=== PATIENT | female | born 1960 | race Caucasian/White ===

== ENCOUNTER 2021-03-03 04:54 | Emergency (ER) | payer OTHER, SELFPAY ==
[2021-03-03 04:57] VITALS: BP 117/86; PULSE 83; RESP 18; TEMP 36.4; O2SAT 98
[2021-03-03 05:06] VITALS: RESP 18
[2021-03-03 05:12] LABS: Bilirubin Negative (Negative); Blood Negative (Negative); Clarity Sl Cloudy (Clear); Glucose 500 mg/dL (Negative); Ketones Negative (Negative); Leukocyte Esterase Negative (Negative); Nitrite Negative (Negative); Specific Gravity >= 1.030 (1.005-1.025); Urobilinogen 0.2 EU/dL (Up TO 0.2); pH 5.5 (5-8)
--- NOTE | 2021-03-03 05:15 | RT.EKG_ITS ---
APPROVED REPORT Exam: Resting ECG Patient Location: E HR:81 bpm ECG Measurements Heart Rate 81 AXIS MA 180 P 35 QRSd 89 QRS 38 QT 407 T 11 QTc 472 Conclusion Sinus rhythm...normal P axis, V-rate 60- 99 Probable left atrial enlargement...P >50mS, <-0.10mV V1 Low voltage, precordial leads...precordial leads <1.0mV Physician: Rate 81, intervals unremarkable. Sinus rhythm. No significant ST elevation or depression . No STEMI. Q-wave in lead III. No other abnormalities.
--- NOTE | 2021-03-03 05:15 | DI.CT_ITS ---
EXAM: CT ABDOMEN PELVIS W INDICATION: ruq pain. COMPARISON: No exams were available for comparison TECHNIQUE: FINDINGS: CT examination of the abdomen and pelvis was performed with a bolus infusion of 100 cc of Omnipaque 3 50. Images obtained through the lung bases are unremarkable. There is small fluid collection adjacent to the duodenal C loop which appears well-circumscribed in w hich is likely to represent a duodenal diverticulum. This also contains small quantity of gas. I garcia ppose a possibility of contained ulceration could not be excluded, if clinically indicated additional evaluation with endoscopy of the stomach and duodenum could be considered. The liver is unremarkable in appearance except for question slight decreased attenuation which could represent hepatic steatosis.. Gallbladder and bile ducts are CT normal. Pancreas appears normal. Spleen is unremarkable in appearance. Adrenals appear normal. The kidneys are unremarkable with no evidence of hydronephrosis, nephrolithiasis, or renal mass.. Ur inary bladder unremarkable. Abdominal aorta is of normal diameter and no major vascular abnormality is seen. No abdominal wall hernia. No abdominal or pelvic adenopathy. Uterus atrophic or absent. Appendix is normal. No evidence of diverticulitis or bowel obstruction. IMPRESSION: Probable duodenal diverticulum. If there is a high clinical suspicion of duodenitis or duodenal ulce ration additional evaluation with endoscopy could be considered. RADIATION DOSE DELIVERED: 1,168.28mGy.cm Total DLP 1,168.28mGy.cm Total DLP RADIATION OPTIMIZATION: All CT scans at this facility use at least one of these dose optimization te chniques: automated exposure control; mA and/or kV adjustment per patient size (includes targeted exa ms where dose is matched to clinical indication); or iterative reconstruction.
--- NOTE | 2021-03-03 05:16 | ED.GENADUL_ITS ---
Discharge Plan Disposition Patient Disposition: HOME Condition: Good Discharge Details Clinical Impression: Abdominal bloating, Incidental pulmonary nodule, Diverticulum of duodenum Primary Care Provider: Sneha Bonilla ED Provider: Keith Noble Home Meds and New Rx's Prescriptions: New omeprazole 40 mg capsule,delayed release(DR/EC) 40 mg PO DAILY Qty: 30 RF: 0 Continued cholecalciferol (vitamin D3) [Vitamin D3] 125 mcg (5,000 unit) Tablet 5,000 unit PO DAILY RF: 0 Discharge Instructions Instructions: Abdominal Pain (ED) Additional Instructions: At this time there is evidence of a small outpouching in your small intestines. While this is not life-threatening it does need to be evaluated further. Promptly. Please follow-up closely at your appointment with Dr. Frank surgeon for further assessment. Please take the new medication omeprazole as directed and do not eat anything spicy, tomato-based, citrus-based, as this may worsen your symptoms. Please stick with a bland diet for the next few weeks. [facility] Additionally there was an incidental small pulmonary nodule noted on your CAT scan. Please follow-up with your family doctor for repeat imaging in the next few months for reassessment. If you notice any worsening of your symptoms, or any new symptoms such as vomiting, diarrhea, fever, chills, shortness of breath, chest pain, numbness, weakness, or fainting , please return immediately to the emergency department for reevaluation. Please follow up with your primary care provider as soon as possible for reassessment and reevaluation. As always, it was a pleasure participating in your medical care today. Your appointment is on Saturday at 11:30 AM. Please do not miss this appointment. Referrals: Lucia Frank MD [ [facility] STAFF PHYSICIAN] - Sneha Bonilla [Primary Care Provider] - Medical Decision Making <José Miguel Noble DO - Last Filed: 03/03/21 07:51> 60-year-old female with past medical history of hysterectomy, d iabetes, previous ovarian cyst, presents today for complaint of abdominal pain nausea. Patient recently moved back here a few months ago from [place]. [facility] Patient states last 24 hours she has had bloating, nausea with no vomiting. She has had no diarrhea. Later this evening she had an increase in epigastric and right upper quadrant pain. Seemingly unrelated she has noticed a small amount of tingling in her right lateral thigh, as well as slight increase in her chronic left calf rash. In regards to the tingling she denies any trauma or back pain. She denies any weakness in the leg. Regards to the rash she denies any new medications or changes. She states that she has had type of rash for quite some time. No other complaints at this time. No other modifying factors. Exam demonstrates mild right upper quadrant tenderness. No signs of an acute surgical abdomen currently though. Mild bloating of the abdomen. No saddle anesthesia or signs of neurovascular compromise. Sensation is notably intact on the right thigh and right lower extremity. Rash on the left calf appears chronic. No evidence of Henoch-Amy?nlein purpura. Patient states that the nature of the rash appears consistent with prior rash that area just slightly increased in size. No evidence of infection or cellulitis. At this time symptoms are concerning for acute gallbladder pathology, pancreatitis. I do not feel that the other etiologies are related at this time and currently there is no clinical evidence of life-threatening rash, cauda equina syndrome or or severe neurovascular compromise. We will get a CT scan of the abdomen to evaluate the gallbladder, gently rehydrate, give Toradol for pain, monitor closely and reassess. Screening EKG is unremarkable. 7:19 AM Laboratory work-up unremarkable. Patient resting comfortably. Repeat abdominal exam demonstrates notable improvement of pain. Pending CT scan results. Patient will be signed out to my colleague Dr. Noble for reassessment final disposition after CT scan results. 7:[address] scan results have returned, there is evidence of a 1.3 cm focal outpouching of fluid and gas along the descending duodenum. Patient has no white count, bandemia or left shift, no fever or tachycardia. No clinical evidence of infection otherwise. Dr. Frank has reviewed the CAT scan itself, and feels upon her review that this is more likely to be secondary to a diverticulum. She does recommend in the setting of a benign abdomen that she be discharged with omeprazole and close follow-up outpatient for EGD. This was discussed with the patient. Patient will be given a specific time for the appointment, after which point the patient will be formally otherwise discharge by Dr. Noble. I have extensively reviewed the treatment plan and discharge instructions with the patient. I have addressed all patient concerns at this time. The patient was made aware of what symptoms to monitor for that would warrant a return to the emergency department. Discussed the plan with the patient, they demonstrate verbal understanding and agreement with our assessment and plan at this time. The documentation in this chart was dictated using [employer] dictation software. Please excuse any dictation errors. EKG 5: 23 Rate 81, intervals unremarkable. Sinus rhythm. No significant ST elevation or depression. No STEMI. Q-wave in lead III. No other abnormalities. FINDINGS: Lungs: The visualized lung bases demonstrate minor dependent atelectasis. A few tiny basilar lung nodules measure up to 3 mm. Liver: The liver is mildly fatty in density. It appears otherwise unremarkable. Gallbladder and bile ducts: No gallstones are evident, but ultrasound would be more sensitive. No gross biliary ductal dilatation. Pancreas: Normal. No ductal dilation. Spleen: Normal. No splenomegaly. Adrenal glands: Normal. No mass. Kidneys and ureters: Normal. No hydronephrosis. Stomach and bowel: There is a 1.3 x 1.2 x 1.3 cm focal outpouching of fluid and gas along the descending duodenum which could represent diverticulum or contained ulceration. No significant surrounding fatty inflammatory change is evident, but the duodenal wall may be mildly thickened here. The unopacified small bowel is not significantly distended to suggest obstruction. There is minor sigmoid colonic diverticulosis without evidence for diverticulitis. The large bowel is otherwise grossly unremarkable in appearance. Appendix: The appendix appears normal. Intraperitoneal space: No free air or significant free fluid. Vasculature: The abdominal aorta is nonaneurysmal. Atherosclerotic vascular calcifications are noted. Lymph nodes: There are mildly prominent al hepatis lymph nodes measuring up to 1.3 cm short axis. Urinary bladder: Unremarkable. Reproductive: Unremarkable as visualized. Bones/joints: Degenerative changes involve the spine and hips. Soft tissues: Unremarkable. IMPRESSION: 1. 1.3 cm focal outpouching of fluid and gas along the descending duodenum, could represent diverticulum or contained ulceration. No significant surrounding fatty inflammatory change evident, but potential mild wall thickening of the duodenum here. Consider dedicated evaluation. 2. Mild al hepatis lymphadenopathy measuring up to 1.3 cm short axis, nonspecific. 3. Minor sigmoid colonic diverticulosis without evidence for diverticulitis. 4. Mildly fatty liver. 5. Few basilar lung nodules measuring up to 3 mm, further evaluation and/or followup to be determined at time of final read depending on availability of prior imaging and as per institutional protocol. Thank you for allowing us to participate in the care of your patient. Dictated and Authenticated by: Stone Posada MD 03/03/2021 7:36 AM Eastern Time ([place] & [place]) <Keith Noble MD - Last Filed: 03/03/21 08:10> Dr. Noble and I had discussed the patient's case. She was dispositioned without my involvement, as per Dr. Noble's notes. HPI <José Miguel Noble DO - Last Filed: 03/03/21 07:51> General Date/Time Provider Initiated Documentation: 03/03/21 05:04 . HPI Narrative: 60-year-old female with past medical history of hysterectomy, diabetes, previous ovarian cyst, presents today for complaint of abdominal pain nausea. Patient recently moved back here a few months ago from [place]. [facility] Patient states last 24 hours she has had bloating, nausea with no vomiting. She has had no diarrhea. Later this evening she had an increase in epigastric and right upper quadrant pain. Seemingly unrelated she has noticed a small amount of tingling in her right lateral thigh, as well as slight increase in her chronic left calf rash. In regards to the tingling she denies any trauma or back pain. She denies any weakness in the leg. Regards to the rash she denies any new medications or changes. She states that she has had type of rash for quite some time. No other complaints at this time. No other modifying factors. Related Data Home Medications Medication Instructions Recorded Confirmed cholecalciferol (vitamin D3) 5,000 unit PO DAILY 03/03/21 03/03/21 [Vitamin D3] omeprazole 40 mg PO DAILY #30 cap 03/03/21 Previous Rx's Medication Instructions Recorded omeprazole 40 mg PO DAILY #30 cap 03/03/21 Allergies Allergy/AdvReac Type Severity Reaction Status Date / Time codeine Allergy Unverified 03/03/21 06:21 lorazepam Allergy Unverified 03/03/21 06:21 General Stated Complaint: GenMedical ALEXANDRE: 4 Review of Systems <José Miguel Noble DO - Last Filed: 03/03/21 07:51> All systems reviewed & are unremarkable except as noted in HPI and below PFSH <José Miguel Noble DO - Last Filed: 03/03/21 07:51> Medical History (Updated 03/03/21 @ 07:47 by José Miguel Noble DO) Diabetes Lymph cyst Right wrist injury Surgical History (Updated 03/03/21 @ 07:45 by Bri Waite) History of hysterectomy Social History Smoking/Tobacco Use Status: Never Smoking risk assessment performed?: Yes Alcohol Intake: never Drug use: Never Substance use type: does not use Do you feel safe at home: Yes Do you feel safe in your relationship?: Yes Exam <José Miguel Noble DO - Last Filed: 03/03/21 07:51> Narrative Exam Narrative: 1.Const: Well-nourished, Well-developed, appearing stated age 2.Eyes: PERRL, no conjunctival injection, and symmetrical lids. 3.ENT: Atraumatic external nose and ears. Moist MM. Neck: Symmetric, trachea midline, No thyromegaly. 4.CVS: +S1/S2, No murmurs or gallops. Peripheral pulses 2+ and equal in all extremities. Brisk capillary refill in all extremities. 5.RESP: Unlabored respiratory effort. Clear to auscultation bilaterally. No wheezes rales or rhonchi 6.GI: Soft, nondistended, mild tenderness in the right upper quadrant and epigastric region, more so on the right upper quadrant itself. No pain at McBurney's point. Negative Bob sign. No pelvic tenderness. 7.MSK: Normocephalic/Atraumatic, Extremities w/o deformity or ttp No cyanosis or clubbing, Normal movement of all extremities. No midline tenderness to palpation over the CTLS spine. Normal ROM in flexion, extension, side bend, and rotation. Patient has +5 out of 5 strength in the lower extremities in dorsiflexion and plantarflexion, knee flexion and extension, hip flexion and extension. Normal strength for dorsiflexion and plantar flexion of the great toe bilaterally. There is +2 over 2 dorsalis pedis pulses bilaterally. There is normal sensation to the skin with light touch at the foot, knee, and hip. She does have a slight decrease in soft touch sensation in the right lateral thigh, however pinprick and firm touch are still notably intact and equal. Normal saddle sensation. Good sensation over the deep sural nerve area bilaterally. Rectal exam deferred. Reflexes are +2 over 4 in the patellar reflex bilaterally. +5 out of 5 strength in the medial, ulnar, radial nerve distribution bilaterally in the hands as well as intact light touch sensation to these dermatomes on the hands 8.Skin: Warm, Dry. The patient's left calf demonstrates a chronic appearing nonblanching spotted and slightly raised and bumpy rash localized just to her left lateral calf. Skin appears notably dry, flaky, with no edema, warmth, swelling, calf tenderness, or evidence of vascular compromise. Symptoms do not appear consistent with Henoch-Amy?nlein purpura. Negative Nikolsky sign. No large vesicles or bulla. No palpable purpura. No oral lesions. No mucosal lesions. No evidence of severe cellulitis. No evidence of vaccine preventable rash. 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 Sensation grossly intact, no focal neurologic deficits. 10.Psych: (AAO) x3. Appropriate mood and affect Course <José Miguel Noble DO - Last Filed: 03/03/21 07:51> Vital Signs Vital signs: Vital Signs Temperature 36.4 C L 03/03/21 04:57 Pulse 83 03/03/21 04:57 Respiratory Rate 18 03/03/21 04:57 Blood Pressure 117/86 03/03/21 04:57 Pulse Oximetry 98 03/03/21 04:57 Temperature 36.4 C L 03/03/21 04:57 Pulse 83 03/03/21 04:57 Respiratory Rate 18 03/03/21 05:06 Respiratory Effort Non-Labored 03/03/21 05:06 Respiratory Depth Normal 03/03/21 05:06 Respiratory Pattern Normal 03/03/21 05:06 Blood Pressure 117/86 03/03/21 04:57 Pulse Oximetry 98 03/03/21 04:57 Oxygen Delivery Method Room Air 03/03/21 04:57 Oxygen Flow Rate 0 03/03/21 04:57 Pain Level 8 03/03/21 04:57 Lab/Test Results Lab/Test Results: Laboratory Tests Range/Units 03/03/21 05:05 Urine Color (Yellow) Yellow Urine Clarity (Clear) Sl cloudy Urine pH (5-8) 5.5 Ur Specific Sabine (1.005-1.025) >= 1.030 H Urine Protein (Negative) mg/dL Negative Urine Ketones (Negative) mg/dL Negative Urine Blood (Negative) Negative Urine Nitrite (Negative) Negative Urine Bilirubin (Negative) Negative Urine Urobilinogen (Up TO 0.2) EU/dL 0.2 Ur Leukocyte Esterase (Negative) Negative Urine Glucose (Negative) mg/dL 500 H Sign Out <José Miguel Noble DO - Last Filed: 03/03/21 07:51> Sign Out Data: Sign Out Comment: Epigastric pain and bloating for the last 24 hours. Labs reassuring. Nonsurgical abdomen on exam. Reassess after CT scan results. Last updated by José Miguel Noble DO at 03/03/21 07:21
[2021-03-03] MEDS: Normal Saline 1,000 ML 1000 ML IV (05:24)
[2021-03-03] MEDS: Ondansetron 4 MG/2 ML VIAL IVP (05:25)
[2021-03-03] MEDS: Ketorolac 30 MG/ML VIAL IVP (05:26)
[2021-03-03 05:27] LABS: Abs Immature Grans 0.02 10^3/uL (0.0-0.06); Absolute Basophil Count 0.06 10^3/uL (0.0-0.2); Absolute Eosinophil Count 0.22 10^3/uL (0.0-0.7); Absolute Lymphocyte Count 2.74 10^3/uL (1.2-3.4); Absolute Monocyte Count 0.66 10^3/uL (0.1-0.8); Absolute Neutrophil Count 5.15 10^3/uL (1.2-6.7); Basophils % 0.7; Eosinophils % 2.5; HCT 42.1 % (36.0-46.0); HGB 13.8 g/dL (11.2-15.7); Immature Grans % 0.2; MCHC 32.8 % (32.0-36.0); MCV 85.4 fL (80-95); MPV 8.5 fL (8.0-11.0); Monocytes % 7.5; Neutrophils % 58.1; Nucleated RBC 0 %; Platelet Count 251 10^3/uL (130-400); RBC 4.93 10^6/uL (3.93-5.22); RDW 12.6 % (11.7-14.6); WBC 8.85 10^3/uL (4.4-10.8)
[2021-03-03 05:45] LABS: ALT 39 U/L (14-59); AST 11 U/L (15-37); Albumin 3.7 g/dL (3.4-5.0); Alkaline Phosphatase 129 U/L (46-116); Anion Gap 7.9 mmol/L (3-11); BUN 20 mg/dL (7-18); Bilirubin, Total 0.5 mg/dL (0.2-1.0); CO2 29.1 mmol/L (21.0-32.0); CREATININE 0.8 mg/dL (0.55-1.02); Calcium 8.8 mg/dL (8.5-10.1); Chloride 101 mmol/L (98-107); Glucose 295 mg/dL (74-106); Lipase 125 U/L (73-393); Potassium 3.9 mmol/L (3.5-5.1); Sodium 138 mmol/L (136-145)
[2021-03-03 05:47] LABS: Prothrombin Time 10.4 sec (9.3-11.0); Troponin I < 0.05 ng/mL (<0.06)
--- NOTE | 2021-03-03 07:37 | DI.VRAD_ITS ---
PROCEDURE INFORMATION: Exam: CT Abdomen And Pelvis With Contrast Exam date and time: 03/03/2021 5:16 AM Age: 60 years old Clinical indication: Other: Ruq pain; Prior surgery; Surgery date: 6+ months; Surgery type: S/P hysterectomy TECHNIQUE: Imaging protocol: Computed tomography of the abdomen and pelvis with contrast. Radiation optimization: All CT scans at this facility use at least one of these dose optimization techniques: automated exposure control; mA and/or kV adjustment per patient size (includes targeted exams where dose is matched to clinical indication); or iterative reconstruction. Contrast material: OMNIPAQUE 350; Contrast volume: 100 ml; Contrast route: INTRAVENOUS (IV); COMPARISON: No relevant prior studies available. FINDINGS: Lungs: The visualized lung bases demonstrate minor dependent atelectasis. A few tiny basilar lung nodules measure up to 3 mm. Liver: The liver is mildly fatty in density. It appears otherwise unremarkable. Gallbladder and bile ducts: No gallstones are evident, but ultrasound would be more sensitive. No gross biliary ductal dilatation. Pancreas: Normal. No ductal dilation. Spleen: Normal. No splenomegaly. Adrenal glands: Normal. No mass. Kidneys and ureters: Normal. No hydronephrosis. Stomach and bowel: There is a 1.3 x 1.2 x 1.3 cm focal outpouching of fluid and gas along the descending duodenum which could represent diverticulum or contained ulceration. No significant surrounding fatty inflammatory change is evident, but the duodenal wall may be mildly thickened here. The unopacified small bowel is not significantly distended to suggest obstruction. There is minor sigmoid colonic diverticulosis without evidence for diverticulitis. The large bowel is otherwise grossly unremarkable in appearance. Appendix: The appendix appears normal. Intraperitoneal space: No free air or significant free fluid. Vasculature: The abdominal aorta is nonaneurysmal. Atherosclerotic vascular calcifications are noted. Lymph nodes: There are mildly prominent al hepatis lymph nodes measuring up to 1.3 cm short axis. Urinary bladder: Unremarkable. Reproductive: Unremarkable as visualized. Bones/joints: Degenerative changes involve the spine and hips. Soft tissues: Unremarkable. IMPRESSION: 1. 1.3 cm focal outpouching of fluid and gas along the descending duodenum, could represent diverticulum or contained ulceration. No significant surrounding fatty inflammatory change evident, but potential mild wall thickening of the duodenum here. Consider dedicated evaluation. 2. Mild al hepatis lymphadenopathy measuring up to 1.3 cm short axis, nonspecific. 3. Minor sigmoid colonic diverticulosis without evidence for diverticulitis. 4. Mildly fatty liver. 5. Few basilar lung nodules measuring up to 3 mm, further evaluation and/or followup to be determined at time of final read depending on availability of prior imaging and as per institutional protocol. Dictated and Authenticated by: Stone Posada MD. Ordering:ANA Valdez MD
== END 2021-03-03 08:14 | disposition home or self-care (01) ==
PROVIDERS: Student in an Organized Health Care Education/Training Program; Emergency Provider Emergency Medicine; PCP Nurse Practitioner Family
DX: R14.0 Abdominal distension (gaseous) (principal); R10.11 Right upper quadrant pain; K57.10 Diverticulosis of small intestine without perforation or abscess without bleeding; R91.1 Solitary pulmonary nodule; R21 Rash and other nonspecific skin eruption
CPT/HCPCS: 36415; 80053; 83690; 93005; 96361; 96374; 96375; 99285; 74177; 81003; 84484; 85025; 85610; 85730; 93010; 99284; J1885; J2405

== ENCOUNTER 2021-03-06 01:17 | Emergency (ER) | payer OTHER, MEDICARE, SELFPAY ==
[2021-03-06 01:30] VITALS: BP 135/80; PULSE 82; RESP 18; TEMP 36.4; O2SAT 97
--- NOTE | 2021-03-06 01:42 | W.ED.GENAD ---
Discharge Plan Disposition Patient Disposition: HOME Condition: Stable Discharge Details Clinical Impression: Throat burning Primary Care Provider: Sneha Bonilla ED Provider: Stone Mac Home Meds and New Rx's Prescriptions: Continued omeprazole 40 mg capsule,delayed release(DR/EC) 40 mg PO DAILY Qty: 30 RF: 0 insulin glargine 100 unit/mL Solution 15 unit SUBCUT DAILY RF: 0 ammonium lactate 12 % Lotion 1 applic TOPICAL BID RF: 0 hydroxyzine HCl 50 mg Tablet 50 mg PO HS PRNRF: 0 triamcinolone acetonide 0.1 % Cream 1 applic TOPICAL BID PRNRF: 0 ergocalciferol (vitamin D2) 50,000 unit Tablet 50,000 unit PO QWEEK RF: 0 carboxymethylcellulose sodium 0.5 % Drops 1 drp ophthalmic (eye) QID RF: 0 nystatin 100,000 unit/gram Cream 1 applic TOPICAL TID PRNRF: 0 mupirocin 2 % Ointment 1 applic TOPICAL BID PRNRF: 0 ketoconazole 2 % Cream 1 applic TOPICAL BID PRNRF: 0 duloxetine 30 mg Capsule,Delayed Release(Dr/Ec) 60 mg PO DAILY RF: 0 cholecalciferol (vitamin D3) 50 mcg (2,000 unit) Tablet 50 mcg PO DAILY RF: 0 Discharge Instructions Additional Instructions: You had normal vital signs and a normal throat exam, there doesn't appear to be an emergent process at this time follow up with your primary care provider within 1 week if you have difficulty breathing, persistent vomit or feel more ill return to the emergency department for evaluation Medical Decision Making 60 yo female with hx of dm, fibromyalgia, who comes in with complaints of one year of burning sensation in throat and throughout her body. No changes tonight in symptoms is just concerned she may have an std despite having no vaginal discharge or abdominal pain. She states she is convinced she has an std from her exhusband but denies ever testing positive for an std and is not sure if he has tested positive. She has no fevers, no chest pain, no dyspnea and is speaking in full sentences on exam. She has a normal oropharynx with midline uvula, no pain over the hyoid, no restricted neck movements and normal swallowing. She has no particular area of her body that has more of burning sensation than another and can't think of anything that makes it better or worse. I suspect the whole body burning is part of her fibromyalgia and given her chronicity of her symptoms as well as reassuring exam with normal pulses, range of motion, normal neuro exam do not feel labs or imaging indicated. HAs no findings on exam to suggest retropharyngeal abscess, epiglotitis, or peritonsilar abscess and no findings to even suggest pharyngitis. She is requesting a throat culture which I feel is reasonable. She declined std testing here and is going to follow up with her primary care provider, return precautions given. Differential Diagnosis Differential Diagnosis: gerd, pharyngitis HPI General Mode of arrival: ambulatory. Date/Time Provider Initiated Documentation: 03/06/21 01:20. Limitations to Documentation: no limitations. Information obtained by: patient. Related Data Home Medications Medication Instructions Recorded Confirmed ammonium lactate 1 applic TOPICAL BID 03/03/21 03/03/21 carboxymethylcellulose sodium 1 drp OPHTHALMIC (EYE) QID 03/03/21 03/03/21 cholecalciferol (vitamin D3) 50 mcg PO DAILY 03/03/21 03/03/21 duloxetine 60 mg PO DAILY 03/03/21 03/03/21 ergocalciferol (vitamin D2) 50,000 unit PO QWEEK 03/03/21 03/03/21 hydroxyzine HCl 50 mg PO HS PRN 03/03/21 03/03/21 insulin glargine 15 unit SUBCUT DAILY 03/03/21 03/03/21 ketoconazole 1 applic TOPICAL BID PRN 03/03/21 03/03/21 mupirocin 1 applic TOPICAL BID PRN 03/03/21 03/03/21 nystatin 1 applic TOPICAL TID PRN 03/03/21 03/03/21 omeprazole 40 mg PO DAILY #30 cap 03/03/21 triamcinolone acetonide 1 applic TOPICAL BID PRN 03/03/21 03/03/21 Previous Rx's Medication Instructions Recorded omeprazole 40 mg PO DAILY #30 cap 03/03/21 Allergies Allergy/AdvReac Type Severity Reaction Status Date / Time aspirin Allergy Hives Unverified 03/06/21 01:35 codeine Allergy Skin Rash Unverified 03/06/21 01:35 Influenza Virus Vaccines Allergy Anaphylaxis Unverified 03/06/21 01:35 lorazepam Allergy Unverified 04/05/21 01:35 peanut oil Allergy Hives Unverified 03/06/21 01:35 shellfish derived Allergy Hives Unverified 03/06/21 01:35 metformin AdvReac Nausea Unverified 03/06/21 01:35 pork derived (porcine) AdvReac Diarrhea Unverified 03/06/21 01:35 General Stated Complaint: GenMedical ALEXANDRE: 3 Review of Systems All systems reviewed & are unremarkable except as noted in HPI and below Constitutional Constitutional: Denies chills and Denies fever(s) Cardiovascular Cardiovascular: Denies chest pain and Denies dyspnea Respiratory Respiratory: Denies cough and Denies dyspnea Gastrointestinal Gastrointestinal: Denies abdominal pain, Denies nausea and Denies vomiting Musculoskeletal Musculoskeletal: Denies joint swelling [facility] Medical History (Updated 03/06/21 @ 01:42 by Stone Mac MD) Alcohol abuse ASCVD (arteriosclerotic cardiovascular disease) Borderline personality disorder Chronic post-traumatic stress disorder (PTSD) Chronic wrist pain Depression Diabetes mellitus Fibromyalgia Hordeolum externum Insomnia Lymph cyst Osteoporosis Right wrist injury Surgical History (Updated 03/03/21 @ 07:45 by Bri Waite) History of hysterectomy Social History Smoking/Tobacco Use Status: Former Tobacco Use Smoking risk assessment performed?: Yes Alcohol Intake: never Drug use: Never Substance use type: does not use Do you feel safe at home: Yes Do you feel safe in your relationship?: Yes Exam Const General: no acute distress Orientation: alert HENMT Head: normal to inspection Ears: external ears normal General nose exam: external nose normal Mouth: moist mucous membranes Eyes General: appearance normal, both eyes and all related structures Neck Neck: normal visual inspection Resp Effort & Inspection: normal respiratory effort and able to speak in complete sentences Cardio Rate: regular rate Skin General skin exam: no rashes or lesions noted Neuro General: patient alert and patient oriented x3 Extrem General: normal to inspection Psych Mental Status: mental status grossly normal Course Vital Signs Vital signs: Vital Signs Temperature 36.4 C L 03/06/21 01:30 Pulse 82 03/06/21 01:30 Respiratory Rate 18 03/06/21 01:30 Blood Pressure 135/80 03/06/21 01:30 Pulse Oximetry 97 03/06/21 01:30 Temperature 36.4 C L 03/06/21 01:30 Temperature Source Skin 03/06/21 01:30 Pulse 82 03/06/21 01:30 Respiratory Rate 18 03/06/21 01:30 Blood Pressure 135/80 03/06/21 01:30 Blood Pressure Position Supine 03/06/21 01:30 Pulse Oximetry 97 03/06/21 01:30 Oxygen Delivery Method Room Air 03/06/21 01:30 Oxygen Flow Rate 0 03/06/21 01:30 Pain Level 9 03/06/21 01:30
== END 2021-03-06 01:55 | disposition home or self-care (01) ==
PROVIDERS: Emergency Provider Emergency Medicine; PCP Nurse Practitioner Family
DX: J02.9 Acute pharyngitis, unspecified (principal)
CPT/HCPCS: 99281; 87070

== ENCOUNTER → 2021-03-07 11:29 | Outpatient (BNVA) | payer OTHER, SELFPAY | PROVIDERS: PCP Nurse Practitioner Family; Referring Provider Nurse Practitioner Family; Visit Provider Surgery | DX: R69 Illness, unspecified (principal) | CPT/HCPCS: 99203; 99215 ==

== ENCOUNTER 2021-03-23 01:48 | Outpatient (CLI) | payer OTHER, SELFPAY ==
--- NOTE | 2021-03-23 | DI.MAMMO_ITS ---
EXAM: MG MAMMO SCREENING CLINICAL HISTORY: SCREENING,Z12.39,[id number],H/O RT CYST REMOVED,BREAST ASYMMETRY SINCE. TECHNIQUE: Bilateral full field digital CC and MLO mammographic images were obtained with 3D tomosyn thesis and utilizing computer aided detection (CAD). COMPARISON: None. Apparently her priors are not able to be obtained. This patient apparently underwent prior excisiona l biopsy which was negative for malignancy right breast. She describes this as ???cyst removal???. FINDINGS: There are multiple clips and architectural distortion in the right breast from prior excisional biops y. Also scarring. There is a small benign-appearing 3 millimeter noncalcified nodule laterally in the right breast. Th is probably a small benign lymph node. There are no spiculated masses. No malignant-appearing microcalcification groups in either breast. IMPRESSION: Benign findings. No radiographic evidence of malignancy. BI-RADS Category 2 - Benign Findings Breast Density - Category B - Scattered areas of fibroglandular density Breast density Category C or D implies that the patient has dense breast tissue. Dense breast tissue can make it harder to find cancer on a mammogram. Dense breast tissue is also associated with an incr eased risk of breast cancer. This information about the result of the mammogram report was provided to the patient to raise their awareness. Use this report when you speak with the patient about their risks for breast cancer, which includes their family history. At that time, you may recommend additional screening tests (Ultrasoun d or MRI) as these tests may add significant information. A negative radiographic report should not delay biopsy if a dominant or clinically suspicious mass is present. Up to ten percent of cancers are not identified on mammography. A negative report may reinforce clinical impression. Adenosis and dense breasts may obscure an underlying neoplasm. False positive reports average 6 to 10%. Patient will receive a letter notifying them of these results.
== END 2021-03-23 02:08 ==
PROVIDERS: PCP Nurse Practitioner Family; Visit Provider Internal Medicine
DX: Z12.31 Encounter for screening mammogram for malignant neoplasm of breast (principal); Z98.890 Other specified postprocedural states
CPT/HCPCS: 77063; 77067

== ENCOUNTER → 2022-04-20 00:52 | Outpatient (CLI) | payer OTHER, SELFPAY ==
--- NOTE | 2022-04-20 12:52 | DI.MAMMO_ITS ---
Exam(s) MAMMO SCREENING EXAM: MAMMO SCREENING CLINICAL HISTORY: SCREENING, [id number] TECHNIQUE: Bilateral full field digital CC and MLO mammographic images were obtained with 3D tomosyn thesis and utilizing computer aided detection (CAD). COMPARISON: Available for comparison. FINDINGS: Masses/Architectural Distortion: None seen. Postsurgical changes are seen in the lower inner quadrant of the right breast. There is a stable nodule in the outer right breast. Microcalcifications: No suspicious pleomorphic-type are seen. Skin Thickening/Nipple Retraction: None. IMPRESSION: 1. No significant interval change with no specific features of malignancy noted. 2. Unless there is more urgent need, screening mammography is recommended, as per [employer] guidelines. BI-RADS Category 2 - Benign Findings Breast Density - Category B - Scattered areas of fibroglandular density Breast density category C or D implies that the patient has dense breast tissue. Dense breast tissue is very common and is not abnormal but dense breast tissue can make it harder to find cancer on a ma mmogram. Also, dense breast tissue may increase their breast cancer risk. This information about the result of the mammogram report was provided to the patient to raise their awareness. Use this report when you speak with the patient about their risks for breast cancer, which includes their family hist ory. At that time, you may recommend for more screening tests (Ultrasound or MRI) as they might be us eful based on their risk. A negative radiographic report should not delay biopsy if a dominant or clinically suspicious mass is present. Up to ten percent of cancers are not identified on mammography. A negative report may reinforce clinical impression. Adenosis and dense breasts may obscure an underlying neoplasm. False positive reports average 6 to 10%. Patient will receive a letter notifying them of these results.
== END ==
PROVIDERS: PCP Nurse Practitioner Family; Visit Provider Internal Medicine
DX: Z12.31 Encounter for screening mammogram for malignant neoplasm of breast (principal)
CPT/HCPCS: 77063; 77067

== ENCOUNTER 2023-06-01 15:09 | Outpatient (REF) | payer MEDICARE, SELFPAY | END 2023-06-01 15:10 | disposition home or self-care (01) | LOC: LBN 15:09 | PROVIDERS: PCP Nurse Practitioner Family; Visit Provider Physician Assistant | DX: R07.0 Pain in throat (principal) | CPT/HCPCS: 87070 ==

== ENCOUNTER 2023-12-25 15:19 | Outpatient (REF) | payer MEDICARE, SELFPAY ==
[2023-12-25 21:37] LABS: Bilirubin Negative (Negative); Blood Negative (Negative); Clarity Turbid (Clear); Glucose >=1000 mg/dL (Negative); Ketones 40 mg/dL (Negative); Leukocyte Esterase Trace (Negative); Nitrite Negative (Negative); Urobilinogen 0.2 mg/dL (Up to 0.2); pH 5.5 (5-8)
[2023-12-25 21:48] LABS: Bacteria Few HPF (Negative); Crystals Negative HPF (Negative); Epithelial Cells Few HPF (Negative); Other Cells Few Yeast (Negative); RBC 0-2 HPF (0-2); WBC 20-50 HPF (0-5)
[2023-12-25 21:49] LABS: C & S Indicated? Yes; Casts Negative LPF (Negative); Mucus Trace (Negative)
== END 2023-12-25 15:20 | disposition home or self-care (01) ==
LOC: LBN 15:19
PROVIDERS: Visit Provider Nurse Practitioner Family
DX: R30.0 Dysuria (principal); R39.89 Other symptoms and signs involving the genitourinary system; R82.998 Other abnormal findings in urine; N89.8 Other specified noninflammatory disorders of vagina
CPT/HCPCS: 81003; 81015; 87086; 87480; 87510; 87660

== ENCOUNTER 2024-09-16 01:29 | Outpatient (CLI) | payer MEDICARE, SELFPAY ==
--- NOTE | 2024-09-16 12:49 | DI.MAMMO_ITS ---
Exam(s) MAMMO SCREENING EXAM: MAMMO SCREENING CLINICAL HISTORY: DE AUTH# [id number], SCREENING MAMMO Z12.31 TECHNIQUE: Bilateral full field digital CC and MLO mammographic images were obtained with 3D tomosyn thesis and utilizing computer aided detection (CAD). COMPARISON: Available for comparison. FINDINGS: Masses/Architectural Distortion: No suspicious masses are seen. No new areas of architectural distor tion are present. There again seen post surgical changes in the right breast. Microcalcifications: No suspicious pleomorphic-type are seen. Skin Thickening/Nipple Retraction: None. IMPRESSION: 1. No significant interval change with no specific features of malignancy noted. 2. Unless there is more urgent need, screening mammography is recommended, as per [employer] guidelines. BI-RADS Category 2 - Benign Findings Breast Density - Category B - Scattered areas of fibroglandular density Breast density category C or D implies that the patient has dense breast tissue. Dense breast tissue is very common and is not abnormal but dense breast tissue can make it harder to find cancer on a ma mmogram. Also, dense breast tissue may increase their breast cancer risk. This information about the result of the mammogram report was provided to the patient to raise their awareness. Use this report when you speak with the patient about their risks for breast cancer, which includes their family hist ory. At that time, you may recommend for more screening tests (Ultrasound or MRI) as they might be us eful based on their risk. A negative radiographic report should not delay biopsy if a dominant or clinically suspicious mass is present. Up to ten percent of cancers are not identified on mammography. A negative report may reinforce clinical impression. Adenosis and dense breasts may obscure an underlying neoplasm. False positive reports average 6 to 10%. Patient will receive a letter notifying them of these results.
== END 2024-09-16 01:49 ==
LOC: DI 01:29
PROVIDERS: Visit Provider Internal Medicine
DX: Z12.31 Encounter for screening mammogram for malignant neoplasm of breast (principal)
CPT/HCPCS: 77063; 77067